=== PATIENT | female | born 1970 | race Caucasian/White ===

== ENCOUNTER 2018-11-28 06:50 | Observation (INO) | payer OTHER ==
[2018-11-28] VITALS (19 sets, daily range): BP systolic 95–135; BP diastolic 62–98; PULSE 59–88; RESP 11–24; Ht 152.4 cm; Wt 64.1 kg
[~2018-11-28] VITALS: Ht 152.4 cm; Wt 64.1 kg
[~2018-11-28 06:50] MED LIST: ALBU8.5H8 INH; BECL10.62 IH; FLUT16SP17 NASAL; LORATIDINE PO; PRED20TA PO
[2018-11-28] MEDS ORDERED: VANCOMYCIN 1 GM 250 ML IVPB ONE (07:00)
[2018-11-28] MEDS ORDERED: FENTAnyl 50 MCG/ML VIAL IV PRN ×2 (13:30)
[2018-11-28] MEDS ORDERED: METOCLOPRAMIDE 10 MG INJ IV PRN (13:30)
[2018-11-28] MEDS ORDERED: ONDANSETRON 4 MG INJ IV PRN (13:30)
[2018-11-28] MEDS ORDERED: DIPHENHYDRAMINE 50 MG INJ IV PRN (13:30)
[2018-11-28] MEDS ORDERED: MEPERIDINE 25 MG INJ IV PRN (13:30)
[2018-11-28] MEDS ORDERED: HYDROmorphONE 1 MG/5 ML IV SYRINGE IV PRN ×2 (13:30)
[2018-11-28] MEDS ORDERED: ALBUTEROL 0.083% (NEB) 2.5 MG/3 ML AMP HHN PRN (13:30)
[2018-11-28] MEDS ORDERED: CEFAZOLIN 1 GM INJ ONE (13:41)
[2018-11-28] MEDS ORDERED: LIDOCAINE 100 MG SYRINGE ONE (13:41)
[2018-11-28] MEDS ORDERED: PROPOFOL 20 ML ONE (13:41)
[2018-11-28] MEDS ORDERED: SUGAMMADEX SODIUM 200 MG/2 ML VIAL IV ONE (13:41)
[2018-11-28] MEDS ORDERED: SUCCINYLCHOLINE CHLORIDE 100 MG/5 ML SYG IV ONE (13:41)
[2018-11-28] MEDS ORDERED: ROCURONIUM 50 MG INJ ONE (13:41)
[2018-11-28] MEDS ORDERED: FENTAnyl 50 MCG/ML VIAL ONE (13:41)
[2018-11-28] MEDS: SOD CHLORIDE 0.9% 1,000 ML IV SCH ×2 (14:40→20:21)
[2018-11-28] MEDS ORDERED: HYDROCODONE/APAP (5/325) TAB PO PRN (16:00)
[2018-11-28] MEDS ORDERED: ACETAMINOPHEN 325 MG TAB PO PRN (16:00)
[2018-11-28] MEDS ORDERED: morphine 2 MG INJ IV PRN (16:00)
[2018-11-28] MEDS: LACTATED RINGER'S 1,000 ML IV SCH (18:22)
[2018-11-29 00:20] VITALS: BP 100/65; PULSE 75; RESP 19
[2018-11-29] MEDS: LACTATED RINGER'S 1,000 ML IV SCH (05:20)
[2018-11-29] MEDS: SOD CHLORIDE 0.9% 1,000 ML IV SCH (07:21)
[2018-11-29 07:27] VITALS: BP 105/66; PULSE 61; RESP 18
== END 2018-11-29 14:19 | disposition home or self-care (01) ==
LOC: SDS 06:50 → MS1 15:44
PROVIDERS: ADMIT Surgery Surgical Oncology; ATTEND Surgery Surgical Oncology
DX: N60.92 Unspecified benign mammary dysplasia of left breast (principal); N60.12 Diffuse cystic mastopathy of left breast; N60.82 Other benign mammary dysplasias of left breast; N60.22 Fibroadenosis of left breast; D24.2 Benign neoplasm of left breast; N61.0 Mastitis without abscess; J45.909 Unspecified asthma, uncomplicated
CPT/HCPCS: 19301; J0690; J1170; J2001; J2175; J2405; J2765; J3010; J7030; J7120; Z7500; Z7512; Z7610; 88307; G0378